=== PATIENT | male | born 1960 | race Caucasian/White ===

== ENCOUNTER → 2017-10-21 | Outpatient (CLI) | payer OTHER ==
[~2017-10-21] MED LIST: COUMADIN5 M1 PO; EFFEXOR25 MG; MODURETIC 5/501 TAB; VYTORIN 10 MG-11 TA1 PO
[2017-10-21 08:54] LABS: HEMATOCRIT 44.6 % (42.0-52.0); HEMOGLOBIN 15.3 g/dl (14.0-18.0); MEAN CELL VOLUME 94.7 fl (80.0-94.0); MEAN CORPUSCULAR HGB 32.5 pg (27.0-31.0); MEAN CORPUSCULAR HGB CONC 34.3 g/dl (33.0-37.0); MEAN PLATELET VOLUME 9.8 fl (9.6-12.3); RED BLOOD COUNT 4.71 10*6/uL (4.50-5.90); RED CELL DISTRI WIDTH 13.4 % (0-14.5); WHITE BLOOD COUNT 10.8 10*3/uL (4.8-10.8)
[2017-10-21 08:57] LABS: ALBUMIN 3.9 gm/dl (3.1-4.5); ALKALINE PHOSPHATASE 84 U/L (45-117); BUN 13 mg/dl (7-24); CHLORIDE 104 mmol/L (98-107); CHOLESTEROL 236 mg/dL (<200); CREATININE 0.73 mg/dL (0.70-1.30); HDL CHOLESTEROL 42 mg/dl (40-60); INTERNATIONAL NORM RATIO 2.4 (2.0-3.5); LDL CHOLESTEROL 181 mg/dL (9-159); POTASSIUM 4.1 mmol/L (3.5-5.1); SGOT/AST 15 IU/L (3-35); SGPT/ALT 23 U/L (12-78); SODIUM 139 mmol/L (136-145); TRIGLYCERIDES 66 mg/dl (<150); VLDL CHOLESTEROL 13 mg/dL (6-40)
[2017-10-21 09:00] LABS: TOTAL PROTEIN 7.5 gm/dL (6.4-8.2)
== END | disposition home or self-care (01) ==
LOC: LAB 07:43
PROVIDERS: Family Medicine
DX: Z12.5 Encounter for screening for malignant neoplasm of prostate (principal); R53.83 Other fatigue

== ENCOUNTER 2019-02-08 12:35 | Inpatient (IN) | payer OTHER ==
[~2019-02-08] VITALS: Ht 175.3 cm; Wt 69.1 kg
--- NOTE | ~2019-02-08 | PR ---
[place], [place] PROGRESS NOTE NAME: EVERETT HAIR UNIT #: [id number] ROOM: 404 DOCTOR: NITHIN SEALS MD BIRTHDATE: [birth year] DOS: 02/13/2019 SUBJECTIVE: The patient was seen and examined on the date of 02/13/2019. The patient has been admitted to the hospital, did not sign against medical advice. Denies symptoms of fever, chills, coughing, or any sputum expectoration. OBJECTIVE: GENERAL: The patient is noted comfortable this morning on the chair. VITAL SIGNS: For the patient normal temperature, respiratory rate 20, heart rate 84, blood pressure 128/74. HEENT: Examination shows head was atraumatic. Eyes nonicterus. NECK: Supple. CARDIOVASCULAR: S1, S2 audible. LUNGS: Decreased breath sounds still noted in the right lower lung. There were no wheezing. There were no crackles. ABDOMEN: Soft, nontender. Bowel sounds present. EXTREMITIES: No new change. LABORATORY DATA: PT/INR was 1.1. Culture of the bronchial washing noted as normal james. IMPRESSION: 1. The patient who has currently noted with a postobstructive pneumonia involving the left lower lobe with endobronchial lesion status post biopsy, pending results. Suspected as malignancy. 2. The patient with chronic obstructive pulmonary disease, which remains stable. 3. History of aortic valve replacement as well. PLAN OF TREATMENT: The patient could be discharged home setting with the use of the Lovenox bridging until the INR becomes therapeutic with the use of Coumadin. He was advised to be followed outpatient by his Chainstitch Sewing Machine Operator for further assessment of the current suspected lung cancer, pneumonia, and others. The discharge planning was discussed with Dr. Sabino Galdamez. [place], [place] PROGRESS NOTE NAME: EVERETT HAIR UNIT #: [id number] ROOM: 404 DOCTOR: NITHIN SEALS MD BIRTHDATE: [birth year] NITHIN PATIÑO MD CM:PNTRANS [id number] NITHIN MEHTA MD 02/25/19 0937 interface
--- NOTE | ~2019-02-08 | PR ---
[place], [place] PROGRESS NOTE NAME: EVERETT HAIR [facility] #: [id number] UNIT #: [id number] ROOM: 404 DOCTOR: KAYLYN MEHTA MD,NITHIN BIRTHDATE: [birth year] DOS: 02/10/2019 PULMONARY PROGRESS NOTE SUBJECTIVE: The patient's essentially condition remains the same coughing with intermittent sputum expectoration. Denies symptoms of chest pain, fever or chills. Shortness of breath of the patient remains with some wheezing at times. Denies symptoms of hemoptysis, nausea, vomiting, diarrhea, abdominal pain, or pain of the lower extremities. Denies symptoms of hematemesis or melena. The patient yesterday was continued on the Lovenox because surgical intervention necessary bronchoscopy and the Coumadin was completely discontinued. The remaining system reviewed and they were noted all negative. His was also present in the room with the patient today to discuss his assessment. PHYSICAL EXAMINATION: GENERAL: The patient comfortable sitting on the bed this morning. VITAL SIGNS: The patient with normal temperature, respiratory rate 20, heart rate 91, blood pressure 110/60. The pulse oxygen saturation was noted as 88-91% saturation on room air. HEENT: Examination shows head was atraumatic. EYES: No icterus. NECK: Supple. CARDIOVASCULAR: S1, S2 is audible. LUNGS: The patient was noted with severe decreased breath sound in the right lower lung. Occasional wheezing. There were no crackles. ABDOMEN: Soft, nontender. Bowel sounds present. EXTREMITIES: No acute edema. MUSCULOSKELETAL: Without any acute deformities. CENTRAL NERVOUS SYSTEM: Intact. VISIBLE SKIN: No lesions or rashes. LABORATORY DATA: The patient's CBC: WBC count 23.8. Hemoglobin 10.4, hematocrit 32.3, platelet count 459,000. Culture of the sputum was pending for this patient at this time. The Gram stain of the patient noted with moderate epithelial cells, many white blood cells, moderate gram-positive cocci in pairs and moderate gram-negative bacilli with normal james preliminary noted. Final culture results were pending. CMP of the patient this morning, normal BUN and creatinine. AST and ALT were noted mildly elevated. IMPRESSION: 1. The patient who has been currently noted with narrowing of the left main stem bronchus with atelectasis and acute pneumonia, ongoing with severe leukocytosis. 2. Chronic obstructive pulmonary disease. 3. Chronic nicotine dependence. 4. Abnormal LFTs, rule out alpha-1 antitrypsin deficiency. 5. History of past mitral valve replacement. PLAN OF TREATMENT: The patient agreed for diagnostic therapeutic bronchoscopy that was planned to be done in the morning. After discussing the assessment of the patient with the patient's spouse, she also agreed for that. Based on that, [place], [place] PROGRESS NOTE NAME: EVERETT HAIR [facility] #: [id number] UNIT #: [id number] ROOM: [facility] DOCTOR: KAYLYN MEHTA MD,NITHIN BIRTHDATE: [birth year] the patient's Lovenox will be discontinued from the evening until after completion of procedure to be started again based on the biopsy, possibly tomorrow evening. Continue bronchodilator, antibiotics. Continue other therapy, plan of management, care plan and treatment. Supportive therapy, other plan of care with additional treatment changes will be ordered based on the progression of illness. Monitor culture results of the sputum as well. NITHIN PATIÑO MD CM:PNTRANS [id number] NITHIN MEHTA MD 02/25/19 0935 interface
--- NOTE | ~2019-02-08 | CON ---
[place], [place] REPORT OF CONSULTATION NAME: EVERETT HAIR [facility] #: [id number] UNIT #: [id number] ROOM: 404 DOCTOR: NITHIN SEALS MD BIRTHDATE: [birth year] DOS: 02/09/2019 PULMONARY CONSULTATION, EVALUATION, AND MANAGEMENT CONSULTATION REQUESTED BY: Hospitalist service. REASON FOR CONSULTATION: For assessment of the acute pneumonia. HISTORY OF PRESENT ILLNESS: This 59-year-old white male patient, unknown to me from the past, has been managed by Pulmonology in [place], [place]. The patient stated he is here, he has been noted with acute pneumonia that he normally finding with symptoms. He reported symptoms of pneumonia once years as per patient. The patient stated that he has been noted with symptoms of food poisoning for the past few days. Prior for that, the patient started having increased chest congestion, difficulty lying on the left side with chest discomfort and pain. He was reporting symptoms of excessive wheezing, cough with intermittent sputum expectoration. The sputum expectoration noted yellowish in color to brownish in color, which was noted thick and purulent. Denies symptoms of hemoptysis. He did not report any acute pleuritic chest pain. REVIEW OF SYSTEMS: CONSTITUTIONAL: Fatigue and tiredness noted without any symptoms of fever or chills. EYES: Denies burning, redness, or tenderness. EARS, NOSE, THROAT SYMPTOMS: Denies sore throat, hoarseness, otalgia, postnasal drainage or epistaxis. CARDIOVASCULAR: Denies angina pain, edema, or pain of the lower extremities. GASTROINTESTINAL: Denies dysphagia, nausea, vomiting, diarrhea, abdominal pain, hematemesis, melena, or hematochezia. GENITOURINARY SYMPTOMS: Denies dysuria, suprapubic hematuria. MUSCULOSKELETAL: No acute joint pain, redness, or tenderness. SKIN: No lesions or rashes. Remaining systems were reviewed with the patient, they were noted all negative. PAST MEDICAL HISTORY: 1. The patient reported with history of longstanding COPD for this, stage 3, stated by the patient. 2. The patient with coronary artery disease. 3. Hypercholesterolemia. 4. Neurotic depression. 5. Essential hypertension. 6. Aortic prostate disease with replacement. PAST SURGICAL HISTORY: 1. Left inguinal hernia repair. 2. Left aortic valvular stenosis. 3. Aortic valve replacement. [place], [place] REPORT OF CON[facility]ULTATION [id number] #: [id number] ROOM: 404 DOCTOR: KAYLYN MEHTA MD,NITHIN BIRTHDATE: [birth year] SOCIAL HISTORY: The patient stating he is , has 2 children, lives at home. Tobacco use noted since younger age, 2 packs of cigarettes a day for 45 years and currently smoking about a quarter to half a pack of cigarettes per day for the past few years, stating he is retired from his job. Denies any alcohol use or any illicit drug use. FAMILY HISTORY: The patient's father at age 68 years of unknown complications. Mother is an 80-year-old without known medical illnesses. HOME MEDICATIONS: Listed as use of the Moduretic, Vytorin, Effexor, warfarin and use of 2 rescue inhaler and another inhaler name unknown by the patient. CURRENT MEDICATIONS: The current medication, which were administered, the patient on this hospitalization were noted as use of Coumadin Monday, Monday, and Monday; Lipitor 20 mg, Coumadin is 2.5 mg alternating 2 mg daily, Singulair 10 mg daily, Lovenox 70 mg subcutaneous b.i.d., Lasix 20 mg daily, Lexapro 10 mg daily, DuoNeb every 4 hours, azithromycin 500 mg IV daily, Rocephin 1 gram IV daily. DRUG ALLERGIES: No known drug allergies. PHYSICAL EXAMINATION: GENERAL: This is a 59-year-old white male patient currently sitting comfortably on the bed without any acute distress. Height of 5 feet 9 inches, weight 152 pounds, BMI 22.4. VITAL SIGNS: For the patient recorded normal temperature, respiratory rate 18-30. Heart rate of 81-88. Blood pressure 127/68 - 118/52. Pulse oxygen saturation recorded on 2 liters nasal cannula 97% saturation. HEENT: Examination shows head was atraumatic. EYES: No icterus. NECK: Supple. CARDIOVASCULAR: S1, S2 is audible. LUNGS: Noted patient with decreased breaths in the lungs bilaterally with crackles in the lung bases, left than the right side. ABDOMEN: Soft, nontender and flat. Bowel sounds present. EXTREMITIES: Without acute edema. MUSCULOSKELETAL: The patient noted without any acute deformities. CENTRAL NERVOUS SYSTEM nurse echo 2-12 intact. LABORATORY DATA: CBC on 02/08/2019; on admission, WBC count 25.8, hemoglobin 13.8, platelet count normal. The platelet 19,000. CMP of normal BUN and creatinine, glucose 114. Magnesium 2.3. Lactic acid 1.6. Arterial blood gas patient on 3 liters nasal cannula, pH of 7.47 of 36. He was noted on admission. Troponin of 3 sets in the past and followup were negative. The PT/INR today noted 2.0. CMP this morning, BUN normal, creatinine was normal. Phosphorus 2.4. Albumin 2.4. CBC this morning: WBC count 18.2, hemoglobin 10.9, hematocrit normal, platelet count 419,000. Sputum culture was pending. The Gram stain this morning moderate epithelial cells, white blood cells, gram-positive cocci in pairs and moderate gram-negative bacilli. Chest x-ray reviewed that was done on 02/08/2019 shows basilar area of infiltration. CT [place], [place] REPORT OF CONSULTATION NAME: EVERETT HAIR UNIT #: [id number] ROOM: [facility] DOCTOR: KAYLYN MEHTA MD,[facility] BIRTHDATE: [birth year] scan of the chest was noted with partial occlusion of the left main stem bronchus, which appeared to be quite narrowed. In addition to that, large area of consolidation, infiltration were noted in the left lower lobe as well. Small infiltration noted in the right upper lobe as well with evidence of mediastinal lymph node enlargement noted, short dimension lymph node was noted in the mediastinum as at the precarinal area, he has 2 cm in size. The Hilar structures cannot be accurately assessed including full lymph node enlargement for this because of lack of the IV contrast. IMPRESSION: 1. The patient who has been currently admitted to the hospital with finding of acute pneumonia. The patient reporting recurrent pneumonia left side several years. The patient has been seen by catalyst operator gasoline, has been noted with another episode of pneumonia with possible consideration of endobronchial obstruction if the patient strongly to be considered and to be excluded including for any mass lesion. 2. Enlargement of lymph node at this time could be pathological. The patient required further assessment. 3. Chronic anticoagulation was noted with history of aortic valve replacement. 4. Persistent chronic nicotine dependence was also known. 5. Mild anemia of chronic disease. 6. Hypophosphatemia. 7. Chronic nicotine dependence management. PLAN OF TREATMENT: At this time, the patient was getting both Lovenox and Coumadin with a low therapeutic INR. The Coumadin will be placed on hold. The patient will be suggested bronchoscopy and EKG. Lovenox will be continued temporarily until the patient could be resumed on his usual dose of Coumadin from the home dose either in case of refusal of the bronchoscopy or after bronchoscopy to minimize the bleeding. The patient with hypophosphatemia, most likely refeeding syndrome in view longstanding history of chronic obstructive pulmonary disease. Continue current antibiotics ordered. Monitor results of sputum culture and the blood cultures. Ordered urine legionella antigen, strep antigen as well. Bronchodilator will be continued. There was no need of steroids as the patient does not seem to have acute exacerbation of chronic obstructive pulmonary disease. Diagnostic and therapeutic bronchoscopy would be considered. Continue other therapy, plan of management as well. Continue phosphorus, for the medical and hypophosphatemia refeeding syndrome. Other therapy, plan and management. Additional treatment changes will be made based on progression of his illness. Thanks for allowing me to participate in the care of this patient. [place], [place] REPORT OF CONSULTATION NAME: EVERETT HAIR [place] UNIT #: [id number] ROOM: [facility] DOCTOR: NITHIN SEALS MD BIRTHDATE: [birth year] NITHIN PATIÑO MD CM:CONSTR:REPORT OF CONSULTATION 1443 02/25/19 0934 interface
--- NOTE | ~2019-02-08 | PR ---
[place], [place] PROGRESS NOTE NAME: EVERETT HAIR [facility] #: [id number] UNIT #: [id number] ROOM: 404 DOCTOR: KAYLYN MEHTA MD,NITHIN BIRTHDATE: [birth year] DOS: 02/12/2019 PULMONARY PROGRESS NOTE SUBJECTIVE: The patient was seen and examined on the date of 02/12/2019. He underwent bronchoscopy yesterday with biopsy taken of the large endobronchial lesion with left pleural effusion resulting in almost complete occlusion. The procedure was done under general anesthesia and after the patient was intubated. The patient remains in the intensive care unit. Several hours later, the patient had been successfully liberated from mechanical ventilator without difficulty. This morning when the patient was seen, he was noted extremely upset why he is in the ICU and also was arguing with mother and his spouse previously. He would like to leave the hospital today. He denies symptoms of chest pain though. Denies symptoms of shortness of breath. The coughing has been decreased after bronchoscopy. Denies symptoms of hemoptysis. Denies symptoms of hematemesis, melena, or hematochezia. The patient was started on Lovenox injection yesterday evening, received the shot of the Lovenox at therapeutic dose with history of aortic valve replacement. The patient denies symptoms of abdominal pain, nausea or vomiting. Remaining systems were reviewed, limited, but noted all negative. PHYSICAL EXAMINATION: GENERAL: This morning, the patient was sitting comfortably in the bed, using oxygen supplementation nasal cannula. VITAL SIGNS: This morning, normal temperature, respiratory rate 17, heart rate 74, blood pressure 136/76. Pulse oxygen saturation recorded on 3 liters nasal cannula was 94-93% saturation. HEENT: Head was atraumatic, eyes nonicterus. NECK: Supple. CARDIOVASCULAR: S1 and S2 audible. LUNGS: The patient was noted with absent breath sounds previously in the left lower lung. There was no wheezing. ABDOMEN: Soft, nontender. Bowel sounds present. EXTREMITIES: The patient was noted without any acute edema. MUSCULOSKELETAL: The patient was noted without any acute deformities. CENTRAL NERVOUS SYSTEM: Cranial nerves 2-12 intact. LABORATORY DATA: Culture of the bronchial washing noted preliminary normal james. The Gram stain of the bronchial washing yesterday was with many white blood cells, rare gram-positive cocci in pairs and clusters. Arterial blood gas yesterday afternoon, pH of 7.42, pCO2 44, pO2 78, the patient was liberated from mechanical ventilator, 3 liters nasal cannula, a few hours later. CMP that was done this morning, normal BUN and creatinine. Potassium was 3.4. AST and ALT were still noted abnormal, mildly elevated. PT/INR was 1.1. CBC, WBC count today was 14.6, hemoglobin 10.7, hematocrit 33.8, platelet count 520,000. Chest x-ray does not show any acute new finding, persistent atelectasis and infiltration in the left lower lobe and changes of COPD and hyperinflation. IMPRESSION: 1. The patient with current acute hypercapnic and hypoxic respiratory failure, [place], [place] PROGRESS NOTE [id number] #: [id number] ROOM: [facility] DOCTOR: NITHIN SEALS MD BIRTHDATE: [birth year] status post liberation from mechanical ventilator and completion of bronchoscopy. 2. Postobstructive pneumonia, pending culture results of the left lower lobe with complete atelectasis. 3. Acute exacerbation of chronic obstructive pulmonary disease. 4. History of aortic valve replacement. 5. Nicotine dependence. PLAN OF TREATMENT: No changes from pulmonary standpoint at this time. The patient was told if he would like to leave the hospital, he can leave the hospital against medical advice whenever he wants to. He would be recommended about continued current treatment. Antibiotic adjustment to be done. If the patient does leave against medical advice, he will not receive any medication from Pulmonary Services. In the meantime, continue oxygen supplementation, bronchodilators, other medical management, and antibiotic adjustment based on culture results if the patient stays in the hospital. Follow the results of the endobronchial mass, which was biopsied yesterday successfully. The results of the pathology report are pending at this time. The patient is encouraged and advised to be seen by his primary ethyl blender from [place], [place] for further followup. Other therapy, plan of management, and care plan as ongoing. NITHIN PATIÑO MD CM:PNTRANS [id number] NITHIN MEHTA MD 02/12/19 9958 interface
--- NOTE | ~2019-02-08 | PR ---
[place], [place] PROGRESS NOTE NAME: EVERETT HAIR [facility] #: [id number] UNIT #: [id number] ROOM: 404 DOCTOR: KAYLYN MEHTA MD,NITHIN BIRTHDATE: [birth year] DOS: 02/11/2019 ADDENDUM LABORATORY DATA: Laboratory data for the patient, which was done today. CBC this morning WBC count 17.4, hemoglobin 11.3, hematocrit 35.7, platelet count 544,000. The CMP that was done this morning, BUN 11 and creatinine normal. Glucose 126. AST, ALT was still noted mildly elevated. Chest x-ray that was done post-intubation for this patient was reviewed with the patient as well shows endotracheal tube noted properly placed. Infiltration noted in the left lower lobe as well with mild pulmonary venous congestion markings. Previous midline sternotomy changes were noted. Arterial blood gas, the patient was started on mechanical ventilator 50% oxygen, pH of 7.27, pCO2 of 65, pO2 of 90.9. IMPRESSION: 1. The patient will be currently noted with postobstructive acute pneumonia involving the left lower lobe. 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 A biopsy was taken with pending path report. 2. Acute exacerbation of chronic obstructive pulmonary disease and acute severe leukocytosis, acute postobstructive pneumonia as well with decreased white cell count. 3. Abnormal LFTs were still noted, etiology is unclear. Rule out alpha-1 antitrypsin deficiency as well with later on outpatient assessment. PLAN OF MANAGEMENT: The patient will be continued on mechanical ventilation. Another arterial blood gas will be repeated in 2 hours. The weaning could be started at that time as necessary. He could be resumed on his Lovenox nightly dose for anticoagulation, used for his history of aortic valve replacement. The patient was also started on ventilator bundle management that will be continued. Other therapy, plan of management of the patient, additional treatment changes will be ordered based on the progression of his illness. Supportive care and therapies as in progress. Usual medical management. Deep venous thrombosis prophylaxis as well. Continuation of bronchodilators. Steroids at this time still not needed. The patient does not have active severe wheezing. Bronchodilators should suffice for the COPD management. Assessment and management was also discussed with the family members in detail. Total time in pulmonary critical care, evaluation, and management today was 45 minutes. [place], [place] PROGRESS NOTE NAME: EVERETT HAIR UNIT #: [id number] ROOM: 404 DOCTOR: NITHIN SEALS MD BIRTHDATE: [birth year] NITHIN PATIÑO MD CM:PNTRANS [id number] NITHIN MEHTA MD 02/13/19 0608 TONYA SUTHERLAND.R
--- NOTE | ~2019-02-08 | EKG ---
[place], [place] ELECTROCARDIOGRAM REPORT NAME: EVERETT HAIR UNIT #: [id number] ROOM: 504 DOCTOR: BRYAN DRAFT REPORT BIRTHDATE: [birth year] [facility] Test Date: 2019-02-08 Test Time: 15:00:20 Pat Name: EVERETT HAIR Department: Room: [facility] Gender: M Loader Engineer: : 1960 Requested By: TAMIA GHOSH Order Number: [id number] Reading MD: Padilla Cazares MD Measurements Intervals [place] Rate: 91 P: 51 HI: 143 QRS: 80 QRSD: 89 T: 196 QT: 353 QTc: 435 Interpretive Statements Sinus arrhythmia Probable LVH with secondary repol abnrm No previous ECG available for comparison Electronically Signed On 02-09-2019 14:56:43 PDT by Padilla Cazares MD CM:EKGRPT:ELECTROCARDIOGRAM REPORT [id number] TAMIA ADAMS DRAFT REPORT TAMIA GOHSH MD
--- NOTE | ~2019-02-08 | EKG ---
[place], [place] ELECTROCARDIOGRAM REPORT NAME: EVERETT HAIR UNIT #: [id number] ROOM: 504 DOCTOR: BRYAN DRAFT REPORT BIRTHDATE: [birth year] [facility] Test Date: 2019-02-08 Test Time: 12:39:15 Pat Name: EVERETT HAIR Department: Room: [facility] Gender: M Second Vp Hr Assessment: Teresa Martinez : 1960 Requested By: TAMIA GHOSH Order Number: [id number] Reading MD: Padilla Cazares MD Measurements Intervals [place] Rate: 91 P: 70 HI: 133 QRS: 82 QRSD: 103 T: 250 QT: 328 QTc: 404 Interpretive Statements Sinus rhythm Atrial premature complexes Probable left atrial enlargement Borderline right axis deviation LVH with secondary repolarization abnormality Artifact in lead(s) V3,V4,V5,V6 No previous ECG available for comparison Electronically Signed On 02-09-2019 14:54:06 PDT by Padilla Cazares MD CM:EKGRPT:ELECTROCARDIOGRAM REPORT [id number] TAMIA ADAMS DRAFT REPORT TAMIA GHOSH MD
--- NOTE | ~2019-02-08 | PROC NOTE ---
[place], [place] PROCEDURE NOTE NAME: EVERETT HAIR UNIT #: [id number] ROOM: [facility] DOCTOR: NITHIN SEALS MD BIRTHDATE: [birth year] DOS: 02/11/2019 PROCEDURE: Bronchoscopy. PREOPERATIVE DIAGNOSES: Loculated left pleural fluid with coughing and chronic obstructive pulmonary disease. POSTOPERATIVE DIAGNOSES: 1. Removal of mucus plug and endobronchial tree subsegment bilaterally. 2. 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 COMPLICATIONS: None. ANESTHESIA: The procedure was done under initially local MAC and then later on converted to general anesthesia to complete the procedure. PROCEDURE DESCRIPTION: Informed consent was obtained from the patient. The patient brought to the OR and placed in supine position. He was given conscious sedation initially, airway introduced into the mouth. Bronchoscope advanced to airway into laryngeal area. Epiglottis and vocal cords were seen, which were moving symmetrical movement. Bronchus advanced to the vocal cord and tracheal lumen noted small to moderate amount of mucus secretion suctioned out. The patient noted impaction of the mucus in the right upper, middle and the lower lobe. Left upper lobe bronchial were noted clear of any mucus impaction. The left lower bronchus noted in endobronchial lesion, friable mucosa in the left endobronchial tree. The patient decided to complete the remaining procedure. Under general anesthesia, the patient is intubated. General anesthesia was given. Bronchoscope advanced again through the endotracheal tube, lower part of trachea and to the left lower bronchus. The tumor present was confirmed completely. About 4-5 biopsies were taken of the left lower lobe endobronchial mass lesion without any difficulty. A 10 mL of 1:10,000 epinephrine was lavaged at the area to prevent any bleeding. Minimal bleeding was noted post-procedure. Procedure was well tolerated by the patient without difficulty. The patient will be continued on mechanical ventilator for further care and decision to liberate from mechanical ventilator will be made in the next 24 hours. Postoperative finding were discussed with the patient's family members in detail in the recovery room. [place], [place] PROCEDURE NOTE NAME: EVERETT HAIR UNIT #: [id number] ROOM: [facility] DOCTOR: NITHIN SEALS MD BIRTHDATE: [birth year] NITHIN PATIÑO MD CM:PROCNOTE:PROCEDURE NOTE [id number] NITHIN MEHTA MD
--- NOTE | ~2019-02-08 | PR ---
[place], [place] PROGRESS NOTE NAME: EVERETT HAIR [facility] #: [id number] UNIT #: [id number] ROOM: 404 DOCTOR: KAYLYN MEHTA MD,NITHIN BIRTHDATE: [birth year] DOS: 02/11/2019 PULMONARY/CRITICAL CARE EVALUATION AND MANAGEMENT SUBJECTIVE: The patient is n.p.o. past midnight for bronchoscopy. Coughing has been noted, without any sputum expectoration. Denies symptoms of chest pain, fever, or chills. Denies symptoms of hemoptysis. The patient has not been reported with symptoms of nausea, vomiting, diarrhea, or abdominal pain. Denies symptoms of fever or chills. The patient had bronchoscopy that was done under general anesthesia because of a lot of respiratory motion with some bleeding in the left lower lobe, endobronchial lesion was identified occluding the left lower lobe of the bronchus. Except the superior subsegment, all the bronchial openings were occluded. It was noted with some area of necrosis on the tumor surface. The patient was continued on mechanical ventilation post-surgery as the procedure was completed successfully. He has been transferred to the Intensive Care Unit. The patient has not been noted with any acute hemodynamic instability at the present time. He has been started on IV Diprivan and that will be continued for sedation purposes. Ventilator bundle management in addition to that will be ordered. OBJECTIVE: GENERAL: At this time, the patient has been currently intubated, noted on mechanical ventilator. VITAL SIGNS: Respiratory rate 18-20, heart rate of 81-84, blood pressure 131/71-145/69. The pulse oxygen saturation on 100% oxygen supplementation is 100% saturation. HEENT: Examination shows head is atraumatic. Eyes nonicterus. Orogastric tube is inserted. NECK: Supple. CARDIOVASCULAR: S1 and S2 audible. LUNGS: Noted with decreased breaths in the lungs bilaterally with scattered expiratory wheezing. ABDOMEN: Soft, nontender. Bowel sounds present. EXTREMITIES: Noted without any edema, clubbing, or cyanosis. MUSCULOSKELETAL: Noted without any acute deformities. CENTRAL NERVOUS SYSTEM: Cranial nerves 2 through 12 intact. LABORATORY DATA: Laboratory data for the patient, which was done today. CBC this morning WBC count 17.4, hemoglobin 11.3, hematocrit 35.7, platelet count 544,000. The CMP that was done this morning, BUN 11 and creatinine normal. Glucose 126. AST, ALT was still noted mildly elevated. Chest x-ray that was done post-intubation for this patient was reviewed with the patient as well shows endotracheal tube noted properly placed. Infiltration noted in the left lower lobe as well with mild pulmonary venous congestion markings. Previous midline sternotomy changes were noted. Arterial blood gas, the patient was started on mechanical ventilator 50% oxygen, pH of 7.27, pCO2 of 65, pO2 of 90.9. IMPRESSION: 1. The patient will be currently noted with postobstructive acute pneumonia [place], [place] PROGRESS NOTE NAME: EVERETT HAIR UNIT #: [id number] ROOM: 404 DOCTOR: NITHIN SEALS MD BIRTHDATE: [birth year] involving the left lower lobe. 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 A biopsy was taken with pending path report. suspected strongly for malignancy. A biopsy was taken with pending path report. 2. Acute exacerbation of chronic obstructive pulmonary disease and acute severe leukocytosis, acute postobstructive pneumonia as well with decreased white cell count. 3. Abnormal LFTs were still noted, etiology is unclear. Rule out alpha-1 antitrypsin deficiency as well with later on outpatient assessment. outpatient assessment. PLAN OF MANAGEMENT: The patient will be continued on mechanical ventilation. Another arterial blood gas will be repeated in 2 hours. The weaning could be started at that time as necessary. He could be resumed on his Lovenox nightly dose for anticoagulation, used for his history of aortic valve replacement. The patient was also started on ventilator bundle management that will be continued. Other therapy, plan of management of the patient, additional treatment changes will be ordered based on the progression of his illness. Supportive care and therapies as in progress. Usual medical management. Deep venous thrombosis prophylaxis as well. Continuation of bronchodilators. Steroids at this time still not needed. The patient does not have active severe wheezing. Bronchodilators should suffice for the COPD management. Assessment and management was also discussed with the family members in detail. Total time in pulmonary critical care, evaluation, and management today was 45 minutes. ADDENDUM LABORATORY DATA: Laboratory data for the patient, which was done today. CBC this morning WBC count 17.4, hemoglobin 11.3, hematocrit 35.7, platelet count 544,000. The CMP that was done this morning, BUN 11 and creatinine normal. Glucose 126. AST, ALT was still noted mildly elevated. Chest x-ray that was done post-intubation for this patient was reviewed with the patient as well shows endotracheal tube noted properly placed. Infiltration noted in the left lower lobe as well with mild pulmonary venous congestion markings. Previous midline sternotomy changes were noted. Arterial blood gas, the patient was started on mechanical ventilator 50% oxygen, pH of 7.27, pCO2 of 65, pO2 of 90.9. IMPRESSION: 1. The patient will be currently noted with postobstructive acute pneumonia involving the left lower lobe. 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 A biopsy was taken with pending path report. 2. Acute exacerbation of chronic obstructive pulmonary disease and acute severe leukocytosis, acute postobstructive pneumonia as well with decreased white cell count. 3. Abnormal LFTs were still noted, etiology is unclear. Rule out alpha-1 antitrypsin deficiency as well with later on outpatient assessment. PLAN OF MANAGEMENT: The patient will be continued on mechanical ventilation. [place], [place] PROGRESS NOTE NAME: EVERETT HAIR [facility] #: [id number] UNIT #: [id number] ROOM: [facility] DOCTOR: NITHIN SEALS MD BIRTHDATE: [birth year] Another arterial blood gas will be repeated in 2 hours. The weaning could be started at that time as necessary. He could be resumed on his Lovenox nightly dose for anticoagulation, used for his history of aortic valve replacement. The patient was also started on ventilator bundle management that will be continued. Other therapy, plan of management of the patient, additional treatment changes will be ordered based on the progression of his illness. Supportive care and therapies as in progress. Usual medical management. Deep venous thrombosis prophylaxis as well. Continuation of bronchodilators. Steroids at this time still not needed. The patient does not have active severe wheezing. Bronchodilators should suffice for the COPD management. Assessment and management was also discussed with the family members in detail. Total time in pulmonary critical care, evaluation, and management today was 45 minutes. NITHIN PATIÑO MD CM:RADHA 1011 [id number] NITHIN MEHTA MD 02/13/19 0608 interface
--- NOTE | ~2019-02-08 | EKG ---
[place], [place] ELECTROCARDIOGRAM REPORT NAME: EVERETT HAIR UNIT #: [id number] ROOM: 504 DOCTOR: BRYAN DRAFT REPORT BIRTHDATE: [birth year] [facility] Test Date: 2019-02-08 Test Time: 18:53:02 Pat Name: EVERETT HAIR Department: Room: [facility] Gender: M Chemistry Professor: Teresa Martinez : 1960 Requested By: TAMIA GHOSH Order Number: [id number] Reading MD: Padilla Cazares MD Measurements Intervals [place] Rate: 79 P: 68 ID: [id number] QRS: 73 QRSD: 93 T: 200 QT: 500 QTc: 574 Interpretive Statements Sinus rhythm Atrial premature complex Left atrial enlargement Abnormal T, consider ischemia, diffuse leads Minimal ST elevation, anterior leads Prolonged QT interval Baseline wander in lead(s) V2,V4 Electronically Signed On 02-09-2019 15:04:49 PDT by Padilla Cazares MD CM:EKGRPT:ELECTROCARDIOGRAM REPORT [id number] [id number] TAMIA ADAMS DRAFT REPORT TAMIA GHOSH MD
[2019-02-08 12:38] VITALS: BP 127/68
[2019-02-08 12:55] LABS: HEMATOCRIT 42.1 % (42.0-52.0); HEMOGLOBIN 13.8 g/dl (14.0-18.0); MEAN CELL VOLUME 95.9 fl (80.0-94.0); MEAN CORPUSCULAR HGB 31.4 pg (27.0-31.0); MEAN CORPUSCULAR HGB CONC 32.8 g/dl (33.0-37.0); MEAN PLATELET VOLUME 9.5 fl (9.6-12.3); PLATELET COUNT AUTOMATED 519 10*3/uL (130-400); RED BLOOD COUNT 4.39 10*6/uL (4.50-5.90); RED CELL DISTRI WIDTH 14.7 % (0-14.5); WHITE BLOOD COUNT 25.8 10*3/uL (4.8-10.8)
[2019-02-08 13:07] LABS: ACT PARTIAL THROMBO TIME 37.6 SECONDS (20.0-32.1); INTERNATIONAL NORM RATIO 2.7 (2.0-3.5)
[2019-02-08 13:12] LABS: ALBUMIN 2.9 gm/dl (3.1-4.5); ALKALINE PHOSPHATASE 115 U/L (45-117); BUN 11 mg/dl (7-24); CHLORIDE 101 mmol/L (98-107); POTASSIUM 3.7 mmol/L (3.5-5.1); SGOT/AST 34 IU/L (3-35); SGPT/ALT 52 U/L (12-78); SODIUM 138 mmol/L (136-145); TOTAL PROTEIN 7.9 gm/dL (6.4-8.2)
[2019-02-08 13:15] LABS: PLATELET SUFFICIENCY HIGH (NORMAL); POLYCHROMASIA SLIGHT; TOTAL CELLS COUNTED 100 #CELLS
[2019-02-08 13:27] LABS: TROPONIN I < 0.015 ng/ml (<0.045)
[2019-02-08 13:47] LABS: ABG BASE EXCESS 3.5 mmol/L (-2.0-2.0); ABG HCO3 26.7 mmol/l (22-26); ABG O2 SATURATION 97.1 % (95-97); ARTERIAL BLOOD GAS PCO2 36.6 mmHg (35-45); ARTERIAL BLOOD GAS PH 7.475 (7.35-7.45); ARTERIAL BLOOD GAS PO2 80.8 mmHg (80-90)
[2019-02-08 14:29] VITALS: BP 126/60
[2019-02-08 15:25] VITALS: BP 124/64
--- NOTE | 2019-02-08 15:39 | NUR ---
SPOKE TO DR PATIÑO REGARDING NEW PT CONSULT. HE WILL SEE PT TOMORROW. NO NEW ORDERS
[2019-02-08 16:19] VITALS: BP 128/70
--- NOTE | 2019-02-08 16:20 | NUR ---
PT STABLE AND READY FOR TRANSPORT TO INPATIENT ROOM.
[2019-02-08 16:50] VITALS: BP 122/56
--- NOTE | 2019-02-08 16:50 | NUR ---
A 59, admitted to 5E, under the services of LUIS Guo DO with a diagnosis of PNEUMONIA. Chief complaint is SHORTNESS OF BREATH. Patient arrived via stretcher from ER. Monitor applied. Initial assessment completed. Vital signs taken and recorded. LUIS GUO DO notified of admission to the unit. Orders received. See assessment for past medical history, medications and allergies. Patient and/or family oriented to unit. [address] visitation policy reviewed. Clothing/patient valuable form completed. SKIN INTACT WITH NO WOUNDS. MANINDER ACUÑA
[2019-02-08] MEDS ORDERED: MONTELUKAST SOD10 MG PO (18:16)
[2019-02-08] MEDS ORDERED: COUMADIN3 M1 PO (18:23)
[2019-02-08] MEDS ORDERED: ESCITALOPRAM OX10 MG PO (18:25)
[2019-02-08] MEDS ORDERED: LIPITOR20 MG PO (18:26)
[2019-02-08] MEDS ORDERED: LASIX20 MG PO (18:27)
[2019-02-08] MEDS ORDERED: SPIRIVA RESPIMAT4 GM NEB (18:28)
[2019-02-08] MEDS ORDERED: PROAIR HFA8.5 GM INH (18:30)
[2019-02-08 20:00] VITALS: BP 106/42
--- NOTE | 2019-02-08 22:49 | NUR ---
PT. INTRUCTED ON USE OF FLUTTER AND EXPRESSED AND UNDERSTANDING ON THE USE OF THE FLUTTER.
[2019-02-09] VITALS: BP 118/52
[2019-02-09 06:23] LABS: MEAN CELL VOLUME 96.9 fl (80.0-94.0); MEAN CORPUSCULAR HGB 30.9 pg (27.0-31.0); MEAN CORPUSCULAR HGB CONC 31.9 g/dl (33.0-37.0); MEAN PLATELET VOLUME 9.7 fl (9.6-12.3); PLATELET COUNT AUTOMATED 419 10*3/uL (130-400); RED BLOOD COUNT 3.53 10*6/uL (4.50-5.90); RED CELL DISTRI WIDTH 14.7 % (0-14.5); WHITE BLOOD COUNT 18.2 10*3/uL (4.8-10.8)
[2019-02-09 06:44] LABS: HEMATOCRIT 34.2 % (42.0-52.0); HEMOGLOBIN 10.9 g/dl (14.0-18.0)
[2019-02-09 06:50] LABS: ALBUMIN 2.4 gm/dl (3.1-4.5); BUN 15 mg/dl (7-24); CHLORIDE 106 mmol/L (98-107); CHOLESTEROL 103 mg/dL (<200); CREATININE 0.71 mg/dL (0.70-1.30); POTASSIUM 3.7 mmol/L (3.5-5.1); SGOT/AST 35 IU/L (3-35); SGPT/ALT 60 U/L (12-78); SODIUM 141 mmol/L (136-145)
[2019-02-09 06:58] LABS: ALKALINE PHOSPHATASE 96 U/L (45-117); FREE T4 1.02 ng/dl (0.76-1.46); HDL CHOLESTEROL 21 mg/dl (40-60); LDL CHOLESTEROL 66 mg/dL (9-159); PHOSPHOROUS 2.4 mg/dL (2.5-4.9); THYROID STIM HORMONE (HS) 0.242 uIU/ml (0.358-4.75); TOTAL PROTEIN 6.6 gm/dL (6.4-8.2); TRIGLYCERIDES 81 mg/dl (<150); VLDL CHOLESTEROL 16 mg/dL (6-40)
[2019-02-09 07:32] LABS: PLATELET SUFFICIENCY NORMAL (NORMAL); TOTAL CELLS COUNTED 100 #CELLS
[2019-02-09 08:00] VITALS: BP 116/54
[2019-02-09 08:24] LABS: VITAMIN D, 25-HYDROXY 27.3 ng/mL (30-100)
[2019-02-09 08:25] LABS: BILIRUBIN NEGATIVE (NEGATIVE); BLOOD TRACE-LYSED (NEGATIVE); CLARITY CLEAR (CLEAR); COLOR YELLOW (YELLOW); GLUCOSE TRACE (NEGATIVE); KETONE NEGATIVE (NEGATIVE); LEUKO ESTERASE NEGATIVE (NEGATIVE); NITRITE NEGATIVE (NEGATIVE); SPECIFIC GRAVITY 1.025 (1.005-1.030); UROBILINOGEN 0.2 E.U./dl (0.2-1.0)
[2019-02-09 08:33] LABS: BACTERIA TRACE; MUCOUS 1+
[2019-02-09 12:00] VITALS: BP 114/60
[2019-02-09 15:47] VITALS: BP 108/50
[2019-02-09 20:00] VITALS: BP 119/51
[2019-02-10] VITALS: BP 123/64
[2019-02-10 07:04] LABS: INTERNATIONAL NORM RATIO 1.2 (2.0-3.5)
--- NOTE | 2019-02-10 07:41 | NUR ---
0651 PT OFF O2 AT THIS TIME. SPO2 88-89% PT REFUSING TO USE O2 AT THIS TIME SECONDARY TO HAVING A SORE NOSE AND HE IS OK WITH HIS SATURATION EVEN THOUGH IT IS BELOW THE HOSPITAL REQUIRED LEVEL.
[2019-02-10 08:00] VITALS: BP 110/60
--- NOTE | 2019-02-10 08:00 | NUR ---
PATIENT VERY UNHAPPY REFUSING OXYGEN,REFUSING MEDICINES,MAD BECAUSE HE HASN'T HAD COUMADIN MAD WE GIVE MEDS AT WRONG TIME. PATIENT WILL NOT WEAR OXYGEN TO MAKE HOSPITAL FEEL BETTER. DIFFUSE RHONCHI NOTED,HARSH COUGH, POX 87-88% RA. PATIENT WANTING TO BE DISCHARGED.
[2019-02-10 08:09] LABS: HEMATOCRIT 32.3 % (42.0-52.0); HEMOGLOBIN 10.4 g/dl (14.0-18.0); MEAN CELL VOLUME 96.4 fl (80.0-94.0); MEAN CORPUSCULAR HGB CONC 32.2 g/dl (33.0-37.0); MEAN PLATELET VOLUME 10.3 fl (9.6-12.3); PLATELET COUNT AUTOMATED 459 10*3/uL (130-400); RED BLOOD COUNT 3.35 10*6/uL (4.50-5.90); RED CELL DISTRI WIDTH 14.9 % (0-14.5); WHITE BLOOD COUNT 23.8 10*3/uL (4.8-10.8)
[2019-02-10 08:32] LABS: ALBUMIN 2.6 gm/dl (3.1-4.5); ALKALINE PHOSPHATASE 95 U/L (45-117); BUN 17 mg/dl (7-24); CHLORIDE 107 mmol/L (98-107); CREATININE 0.75 mg/dL (0.70-1.30); PHOSPHOROUS 2.7 mg/dL (2.5-4.9); PLATELET SUFFICIENCY HIGH (NORMAL); POTASSIUM 3.7 mmol/L (3.5-5.1); SCHISTOCYTES FEW; SGOT/AST 106 IU/L (3-35); SGPT/ALT 149 U/L (12-78); SODIUM 143 mmol/L (136-145); TOTAL CELLS COUNTED 100 #CELLS; TOTAL PROTEIN 5.6 gm/dL (6.4-8.2)
--- NOTE | 2019-02-10 09:00 | NUR ---
SELAM HAS ROUNDED.
--- NOTE | 2019-02-10 10:45 | NUR ---
SELAM BACK IN ROOM AND SPOKE TO PATIENT AND .
[2019-02-10 12:00] VITALS: BP 112/58
[2019-02-10 16:00] VITALS: BP 119/58
[2019-02-10 20:00] VITALS: BP 140/63
[2019-02-11] VITALS: BP 145/69
[2019-02-11 07:17] LABS: INTERNATIONAL NORM RATIO 1.2 (2.0-3.5)
[2019-02-11 08:10] VITALS: BP 131/71
--- NOTE | 2019-02-11 09:58 | NUR ---
Nutrition Support Service Note: Pt is a 59 year old male who presents with Sepsis, SOB, and B/L Pneumonia. Pts typical calorie needs are 2070 calories per day, but dt hypermetabolic state, recommend increasing pts needs by 300 calories. Recommend giving him HS snack to meet needs. [employer] Student Panfilo Velásquez
--- NOTE | 2019-02-11 10:25 | NUR ---
REPORT GIVEN TO MADI CRAWFORD IN ICU.
--- NOTE | 2019-02-11 10:30 | NUR ---
PT OUT OF ROOM FOR BRONCHSCOPY. WILL REVISIT.
[2019-02-11 10:35] VITALS: BP 104/52; BP 139/65
--- NOTE | 2019-02-11 10:35 | NUR ---
RECIEVED FROM OR AFTER BRONCH WITH BX, PT INTUBATED, ETT 23 AT LIP, PT AGITATED, FIGHTING, DIPROVAN STARTED AND VERSED ALSO NEEDED, 2 NEW IV STARTED IN LA, MABRY PLACED, UNABLE TO PLACE NGT,PT STILL FIGHTING AND COUGHING, WILL TRY AGIAN LATER, ETT AND MOUTH SX FOR BLOOD TINGED SECRETIONS
[2019-02-11 10:44] LABS: ABG BASE EXCESS 1.5 mmol/L (-2.0-2.0); ABG HCO3 29.1 mmol/l (22-26); ABG O2 SATURATION 95.9 % (95-97); ARTERIAL BLOOD GAS PH 7.275 (7.35-7.45); ARTERIAL BLOOD GAS PO2 90.9 mmHg (80-90)
[2019-02-11 10:49] LABS: HEMATOCRIT 35.7 % (42.0-52.0); HEMOGLOBIN 11.3 g/dl (14.0-18.0); MEAN CELL VOLUME 96.7 fl (80.0-94.0); MEAN CORPUSCULAR HGB 30.6 pg (27.0-31.0); MEAN CORPUSCULAR HGB CONC 31.7 g/dl (33.0-37.0); MEAN PLATELET VOLUME 9.9 fl (9.6-12.3); NUCLEATED RED BLOOD CELL 0.1 % (0.0-0.0); PLATELET COUNT AUTOMATED 544 10*3/uL (130-400); RED BLOOD COUNT 3.69 10*6/uL (4.50-5.90); RED CELL DISTRI WIDTH 15.2 % (0-14.5); WHITE BLOOD COUNT 17.4 10*3/uL (4.8-10.8)
--- NOTE | 2019-02-11 11:00 | NUR ---
PT WAS TRANSFERRED TO ICU AFTER BRONCH.
[2019-02-11 11:11] LABS: ALBUMIN 2.7 gm/dl (3.1-4.5); BUN 11 mg/dl (7-24); CHLORIDE 103 mmol/L (98-107); CREATININE 0.77 mg/dL (0.70-1.30); POTASSIUM 3.8 mmol/L (3.5-5.1); SGOT/AST 44 IU/L (3-35); SGPT/ALT 123 U/L (12-78); SODIUM 139 mmol/L (136-145)
[2019-02-11 11:14] LABS: ALKALINE PHOSPHATASE 90 U/L (45-117); TOTAL PROTEIN 6.6 gm/dL (6.4-8.2)
[2019-02-11 11:43] LABS: PLATELET SUFFICIENCY HIGH (NORMAL); POLYCHROMASIA SLIGHT; TOTAL CELLS COUNTED 100 #CELLS
[2019-02-11 12:00] VITALS: BP 107/52
--- NOTE | 2019-02-11 12:08 | NUR ---
OGT PLACED PER POLICY, CXR ORDERED FOR PLACEMENT, RESP DRAWING BLOOD GASES
[2019-02-11 12:20] LABS: ABG BASE EXCESS 4.5 mmol/L (-2.0-2.0); ABG HCO3 29.2 mmol/l (22-26); ABG O2 SATURATION 98.4 % (95-97); ARTERIAL BLOOD GAS PCO2 45.4 mmHg (35-45); ARTERIAL BLOOD GAS PH 7.422 (7.35-7.45)
--- NOTE | 2019-02-11 12:45 | NUR ---
PLACED ON CPAP, SEDATION OFF AND PT FULLY AWAKE
--- NOTE | 2019-02-11 13:15 | NUR ---
PT EXTUBATED, SEDATION HAS BEEN OFF WITH PT FULLY AWAKE AND ON CPAP PT AGITATED, CLIMBING OUT OF BED, UNCOOPERATIVE BUT FULLY AWAKE AND IN NO RESP DISTRESS, NC 3L PALCE POST EXTUBATION
--- NOTE | 2019-02-11 14:48 | NUR ---
TOERATING EXTUBATION WELL, ON NC3L
[2019-02-11 15:22] LABS: ABG BASE EXCESS 4.2 mmol/L (-2.0-2.0); ABG HCO3 29.1 mmol/l (22-26); ABG O2 SATURATION 96.9 % (95-97); ARTERIAL BLOOD GAS PCO2 44.9 mmHg (35-45); ARTERIAL BLOOD GAS PH 7.423 (7.35-7.45); ARTERIAL BLOOD GAS PO2 78.2 mmHg (80-90)
[2019-02-11 16:00] VITALS: BP 133/75
--- NOTE | 2019-02-11 18:45 | NUR ---
RETURNED FROM OR
[2019-02-11 20:00] VITALS: BP 99/65
--- NOTE | 2019-02-11 23:24 | NUR ---
PATIENT REFUSES BIPAP. PATIENT CURRENTLY ON 5 L/M SPO2 96%, HR 105.
[2019-02-12] VITALS: BP 99/39
[2019-02-12 04:00] VITALS: BP 102/65
[2019-02-12 05:55] LABS: ALBUMIN 2.3 gm/dl (3.1-4.5); BUN 12 mg/dl (7-24); CHLORIDE 105 mmol/L (98-107); POTASSIUM 3.4 mmol/L (3.5-5.1); SGOT/AST 36 IU/L (3-35); SGPT/ALT 106 U/L (12-78); SODIUM 141 mmol/L (136-145)
[2019-02-12 05:58] LABS: ALKALINE PHOSPHATASE 79 U/L (45-117); CREATININE 0.66 mg/dL (0.70-1.30); PHOSPHOROUS 3.2 mg/dL (2.5-4.9)
[2019-02-12 06:11] LABS: HEMATOCRIT 33.8 % (42.0-52.0); HEMOGLOBIN 10.7 g/dl (14.0-18.0); MEAN CELL VOLUME 97.4 fl (80.0-94.0); MEAN CORPUSCULAR HGB 30.8 pg (27.0-31.0); MEAN CORPUSCULAR HGB CONC 31.7 g/dl (33.0-37.0); MEAN PLATELET VOLUME 10.1 fl (9.6-12.3); PLATELET COUNT AUTOMATED 520 10*3/uL (130-400); RED BLOOD COUNT 3.47 10*6/uL (4.50-5.90); RED CELL DISTRI WIDTH 15.2 % (0-14.5); WHITE BLOOD COUNT 14.8 10*3/uL (4.8-10.8)
[2019-02-12 06:53] LABS: INTERNATIONAL NORM RATIO 1.1 (2.0-3.5)
[2019-02-12 07:26] LABS: PLATELET SUFFICIENCY HIGH (NORMAL); POLYCHROMASIA SLIGHT; TOTAL CELLS COUNTED 100 #CELLS
[2019-02-12 08:00] VITALS: BP 136/76
--- NOTE | 2019-02-12 09:14 | NUR ---
PT VERY RUDE AND ARGUMENTATIVE WITH STAFF AND DR PATIÑO. MAD THAT HE CANT BE DISCHARGED TODAY. PT'S MOTHER AT BEDSIDE DURING THIS AND HE YELLED AT HER TO LEAVE AND DONT COME BACK TILL HE'S DISCHARGED. HIS MOTHER LEFT THE ICCU IN TEARS. DR PATIÑO EXPLAINED TO PT THAT HE IS NOT READY TO BE DISCHARGED BUT THAT WE CAN NOT MAKE HIM STAY AGAINST HIS WILL SO IF HE WANTS TO LEAVE HE WOULD HAVE TO SIGN OUT AMA.
--- NOTE | 2019-02-12 11:09 | NUR ---
PT COMPLAINING THAT HE CANT GET ANYTHING TO EAT AROUND HERE THAT HE WANTS. DR PATIÑO AWARE WHEN HE WAS HERE THIS AM AND STATED HE COULD CHANGE HIS DIET.
--- NOTE | 2019-02-12 11:34 | NUR ---
TAMIKO SMITH MADE AWARE OF PT BEING STEPPED DOWN TO MS PT AND THAT HE IS REQUESTING A PRIVATE ROOM.
[2019-02-12 13:05] LABS: ACID FAST SPEC PROCESSING Concentration (.)
[2019-02-12 16:00] VITALS: BP 105/58
--- NOTE | 2019-02-12 16:13 | NUR ---
PT TRANSFERED TO [facility] AT THIS TIME VIA WHEELCHAIR.
--- NOTE | 2019-02-12 19:12 | NUR ---
PATIENT AMBULATING HALLS AND RETURNED TO ROOM RN ENTERED. PATIENT QUESTIONED WHERE PATIENT'S OXYGEN WAS, SINCE NASAL CANNULA WAS NOT BEING WORN AT THIS TIME. PATIENT STATES "I DON'T NEED THAT CRAP." RN REPLIED THAT HE WAS SUPPOSED TO BE WEARING 4L AT THIS TIME PER REPORT. PT REPLIES "WELP, THEY'RE WRONG. I'M BREATHING JUST FINE AND I'M NOT WEARING THAT CRAP." RN ATTEMPTED TO CHECK PULSE OX, BUT PT STATES "NOPE, CAUSE IF IT'S BAD, I'M NOT WEARING IT ANYWAYS." WILL ATTEMPT TO CHECK PULSE OX DURING SCHEDULED VITALS CHECKS.
--- NOTE | 2019-02-12 19:51 | NUR ---
SPOKE TO REGARDING COUMADIN SITUATION. INSTRUCTED TO GIVE 6 MG TODAY AND THEN PROFILE MEDICATION FOR 4.5 MG DAILY STARTING TOMORROW.
[2019-02-12 20:00] VITALS: BP 118/60
--- NOTE | 2019-02-12 22:02 | NUR ---
PT DENIES ANY NEEDS AT THIS TIME.
[2019-02-13] VITALS: BP 124/60
--- NOTE | 2019-02-13 02:47 | NUR ---
PT ASLEEP IN BED. RESPIRATIONS EASY. NO S/S OF DISTRESS NOTED. WILL MONITOR. CALL LIGHT LEFT IN REACH.
[2019-02-13 06:27] LABS: HEMATOCRIT 35.7 % (42.0-52.0); HEMOGLOBIN 11.4 g/dl (14.0-18.0); MEAN CELL VOLUME 96.7 fl (80.0-94.0); MEAN CORPUSCULAR HGB 30.9 pg (27.0-31.0); MEAN CORPUSCULAR HGB CONC 31.9 g/dl (33.0-37.0); MEAN PLATELET VOLUME 9.5 fl (9.6-12.3); PLATELET COUNT AUTOMATED 523 10*3/uL (130-400); RED BLOOD COUNT 3.69 10*6/uL (4.50-5.90)
[2019-02-13 06:48] LABS: ALBUMIN 2.5 gm/dl (3.1-4.5); BUN 11 mg/dl (7-24); CHLORIDE 105 mmol/L (98-107); CREATININE 0.74 mg/dL (0.70-1.30); POTASSIUM 3.8 mmol/L (3.5-5.1); SGOT/AST 34 IU/L (3-35); SGPT/ALT 103 U/L (12-78); SODIUM 140 mmol/L (136-145)
[2019-02-13 06:50] LABS: ALKALINE PHOSPHATASE 83 U/L (45-117); TOTAL PROTEIN 6.4 gm/dL (6.4-8.2)
[2019-02-13 06:59] LABS: INTERNATIONAL NORM RATIO 1.1 (2.0-3.5)
[2019-02-13 07:05] LABS: PLATELET SUFFICIENCY HIGH (NORMAL); TOTAL CELLS COUNTED 100 #CELLS
[2019-02-13 08:00] VITALS: BP 128/74
[2019-02-13] MEDS ORDERED: VITAMIN D5000 UNI1 PO (09:12)
[2019-02-13] MEDS ORDERED: LOVENOX100 MG/1 M PO (09:12)
[2019-02-13] MEDS ORDERED: AUGMENTIN 875-875 MG PO (09:12)
--- NOTE | 2019-02-13 10:40 | NUR ---
Discharge instructions reviewed with patient/family. Patient receptive and verbalizes understanding. Follow-up care arranged. Written instructions given to patient/family. heplock discontinued. Prescriptions given. Ambulatory off floor. YULIA ALEXANDER
[2019-03-27 09:06] LABS: ACID FAST CULTURE Negative (.)
== END 2019-02-13 10:40 | disposition home or self-care (01) | DRG 871 ==
LOC: ED 12:35 → EDHOLD 14:35 → ICCU 14:35 → 5E 14:58 → ICCU 02-11 09:52 → 4E 02-12 16:10
PROVIDERS: Emergency Medicine; Internal Medicine Critical Care Medicine; Physician Assistant; Registered Nurse; ADMIT Internal Medicine
PROC: 0BC88ZZ Extirpation of Matter from Left Upper Lobe Bronchus, Via Natural or Artificial Opening Endoscopic (ICD-10-PCS; principal; 2019-02-11)
PROC: 0BCB8ZZ Extirpation of Matter from Left Lower Lobe Bronchus, Via Natural or Artificial Opening Endoscopic (ICD-10-PCS; principal; 2019-02-11)
PROC: 0BC58ZZ Extirpation of Matter from Right Middle Lobe Bronchus, Via Natural or Artificial Opening Endoscopic (ICD-10-PCS; principal; 2019-02-11)
PROC: 0BC78ZZ Extirpation of Matter from Left Main Bronchus, Via Natural or Artificial Opening Endoscopic (ICD-10-PCS; principal; 2019-02-11)
PROC: 0BC48ZZ Extirpation of Matter from Right Upper Lobe Bronchus, Via Natural or Artificial Opening Endoscopic (ICD-10-PCS; principal; 2019-02-11)
PROC: 0BBB8ZX Excision of Left Lower Lobe Bronchus, Via Natural or Artificial Opening Endoscopic, Diagnostic (ICD-10-PCS; principal; 2019-02-11)
PROC: 0BC98ZZ Extirpation of Matter from Lingula Bronchus, Via Natural or Artificial Opening Endoscopic (ICD-10-PCS; principal; 2019-02-11)
PROC: 0BC38ZZ Extirpation of Matter from Right Main Bronchus, Via Natural or Artificial Opening Endoscopic (ICD-10-PCS; principal; 2019-02-11)
PROC: 0BC18ZZ Extirpation of Matter from Trachea, Via Natural or Artificial Opening Endoscopic (ICD-10-PCS; principal; 2019-02-11)
PROC: 0BC68ZZ Extirpation of Matter from Right Lower Lobe Bronchus, Via Natural or Artificial Opening Endoscopic (ICD-10-PCS; principal; 2019-02-11)
DX: A41.9 Sepsis, unspecified organism (principal); J15.6 Pneumonia due to other Gram-negative bacteria; J96.01 Acute respiratory failure with hypoxia; J96.02 Acute respiratory failure with hypercapnia; E44.0 Moderate protein-calorie malnutrition; J44.0 Chronic obstructive pulmonary disease with (acute) lower respiratory infection; D68.69 Other thrombophilia; J44.1 Chronic obstructive pulmonary disease with (acute) exacerbation; J98.11 Atelectasis; T17.590A Other foreign object in bronchus causing asphyxiation, initial encounter; R94.5 Abnormal results of liver function studies; I10 Essential (primary) hypertension; R65.20 Severe sepsis without septic shock; I25.10 Atherosclerotic heart disease of native coronary artery without angina pectoris; E78.00 Pure hypercholesterolemia, unspecified; F32.9 Major depressive disorder, single episode, unspecified; F17.210 Nicotine dependence, cigarettes, uncomplicated; D53.9 Nutritional anemia, unspecified; D47.3 Essential (hemorrhagic) thrombocythemia; J98.09 Other diseases of bronchus, not elsewhere classified; R73.9 Hyperglycemia, unspecified; E83.41 Hypermagnesemia; E87.6 Hypokalemia; R91.8 Other nonspecific abnormal finding of lung field; J40 Bronchitis, not specified as acute or chronic; R59.0 Localized enlarged lymph nodes; D63.8 Anemia in other chronic diseases classified elsewhere; E83.39 Other disorders of phosphorus metabolism; J92.0 Pleural plaque with presence of asbestos; X58.XXXA Exposure to other specified factors, initial encounter; Y93.89 Activity, other specified; Y92.89 Other specified places as the place of occurrence of the external cause; Y99.8 Other external cause status; Z95.2 Presence of prosthetic heart valve; Z79.01 Long term (current) use of anticoagulants; I25.2 Old myocardial infarction; Z79.899 Other long term (current) drug therapy; Z91.040 Latex allergy status; Z71.6 Tobacco abuse counseling; Z68.22 Body mass index [BMI] 22.0-22.9, adult

== ENCOUNTER 2019-12-19 16:41 | Emergency (ER) | payer OTHER, MEDICARE ==
[~2019-12-19] VITALS: Ht 175.2 cm; Wt 72.6 kg
[~2019-12-19 16:41] MED LIST changes: +AUGMENTIN 875-875 MG PO; +COUMADIN3 M1 PO; +ESCITALOPRAM OX10 MG PO; +LASIX20 MG PO; +LIPITOR20 MG PO; +LOVENOX100 MG/1 M PO; +MONTELUKAST SOD10 MG PO; +PROAIR HFA8.5 GM INH; +SPIRIVA RESPIMAT4 GM NEB; +VITAMIN D5000 UNI1 PO
[2019-12-19 16:48] VITALS: BP 115/58
[2019-12-19 17:19] LABS: BASO # 0.1 10*3/uL (0.0-0.1); BASO % 1.1 % (0.0-1.0); EOS # 0.3 10*3/uL (0.0-0.4); EOS % 3.6 % (1.0-4.0); HEMATOCRIT 39.1 % (42.0-52.0); LYMPH # 1.7 10*3/uL (1.3-4.4); LYMPH % 18.5 % (27.0-41.0); MEAN CORPUSCULAR HGB 25.4 pg (27.0-31.0); MEAN CORPUSCULAR HGB CONC 29.9 g/dl (33.0-37.0); MEAN PLATELET VOLUME 9.5 fl (9.6-12.3); MONO # 1.5 10*3/uL (0.1-1.0); MONO % 15.6 % (3.0-9.0); NEUT # 5.7 10*3/uL (2.3-7.9); NEUT % 60.9 % (47.0-73.0); PLATELET COUNT AUTOMATED 420 10*3/uL (130-400); RED CELL DISTRI WIDTH 18.8 % (0-14.5); WHITE BLOOD COUNT 9.4 10*3/uL (4.8-10.8)
[2019-12-19 17:31] LABS: ACT PARTIAL THROMBO TIME 35.9 SECONDS (20.0-32.1); INTERNATIONAL NORM RATIO 2.3 (2.0-3.5)
[2019-12-19 17:34] LABS: ALBUMIN 3.6 gm/dl (3.1-4.5); ALKALINE PHOSPHATASE 118 U/L (45-117); BUN 16 mg/dl (7-24); CHLORIDE 106 mmol/L (98-107); CREATININE 0.84 mg/dL (0.70-1.30); POTASSIUM 4.2 mmol/L (3.5-5.1); SGOT/AST 23 IU/L (3-35); SGPT/ALT 29 U/L (12-78); SODIUM 139 mmol/L (136-145); TOTAL PROTEIN 7.3 gm/dL (6.4-8.2)
[2019-12-19 17:36] LABS: TROPONIN I < 0.015 ng/ml (<0.045)
[2019-12-19] MEDS ORDERED: LEVAQUIN750 M1 PO (18:16)
[2019-12-19] MEDS ORDERED: VIBRAMYCIN100 MG PO (18:50)
== END 2019-12-19 18:28 | disposition home or self-care (01) ==
LOC: ED 16:41
PROVIDERS: Physician Assistant
DX: J18.9 Pneumonia, unspecified organism (principal); J44.9 Chronic obstructive pulmonary disease, unspecified; F17.200 Nicotine dependence, unspecified, uncomplicated; Z79.2 Long term (current) use of antibiotics; Z79.899 Other long term (current) drug therapy; Z79.01 Long term (current) use of anticoagulants; Z95.4 Presence of other heart-valve replacement